=== PATIENT | male | born 1985 | race Caucasian/White ===

== ENCOUNTER 2016-12-21 10:46 | Day surgery (SDC) | payer OTHER ==
[~2016-12-21 10:46] MED LIST: ACETAMINOPHEN 1,000 MG/100 ML 100 ML IV ONE; CELECOXIB 100 MG CAPSULE PO ONE; ceFAZolin 2 GM/50 ML 50 ML IV ONE
[2016-12-21] MEDS ORDERED: LACTATED RINGERS 1,000 ML IV ONE ×2 (11:33→14:02)
[2016-12-21] MEDS ORDERED: PROPOFOL 200 MG/20 ML VIAL IVP ONE (12:45)
[2016-12-21] MEDS ORDERED: fentaNYL 100 MCG/2 ML VIAL IVP ONE (12:45)
[2016-12-21] MEDS ORDERED: DEXAMETHASONE 4 MG/ML VIAL IVP ONE (12:45)
[2016-12-21] MEDS ORDERED: ONDANSETRON 4 MG/2 ML VIAL IVP ONE (12:45)
[2016-12-21] MEDS ORDERED: LIDOCAINE-MPF 2% 5 ML VIAL IM ONE (12:45)
[2016-12-21] MEDS ORDERED: MIDAZOLAM 2 MG/2 ML VIAL IVP ONE (12:45)
[2016-12-21] MEDS: HYDROmorphone 1 MG/ML SYRINGE ONE ×5 (14:35→15:05)
[2016-12-21] MEDS ORDERED: HYDROmorphone 1 MG/ML SYRINGE ONE ×2 (14:49→15:04)
[2016-12-21] MEDS ORDERED: fentaNYL 100 MCG/2 ML VIAL ONE (15:05)
[2016-12-21] MEDS ORDERED: HYDROcod/ACETAM 5/325 MG TABLET ONE (15:25)
== END 2016-12-21 10:47 | disposition home or self-care (01) ==
PROC: 0SBC4ZZ Excision of Right Knee Joint, Percutaneous Endoscopic Approach (ICD-10-PCS; 2016-12-21)
PROC: 0SQC4ZZ Repair Right Knee Joint, Percutaneous Endoscopic Approach (ICD-10-PCS; 2016-12-21)
PROC: 0SCC4ZZ Extirpation of Matter from Right Knee Joint, Percutaneous Endoscopic Approach (ICD-10-PCS; principal; 2016-12-21 12:15)
DX: M22.41 Chondromalacia patellae, right knee (principal); M94.261 Chondromalacia, right knee; M25.861 Other specified joint disorders, right knee; M23.41 Loose body in knee, right knee; M67.51 Plica syndrome, right knee; J30.9 Allergic rhinitis, unspecified; Z87.891 Personal history of nicotine dependence; R03.0 Elevated blood-pressure reading, without diagnosis of hypertension; G89.29 Other chronic pain
CPT/HCPCS: 29875; 29879; A9270; J0131; J0690; J1170; J7120